=== PATIENT | female | born 1970 | race Caucasian/White ===

== ENCOUNTER 2020-07-18 04:35 | Emergency (ER) | payer MEDICAID ==
[~2020-07-18] VITALS: Ht 162.6 cm; Wt 83.9 kg
[2020-07-18 04:50] VITALS: BP 160/90
--- NOTE | 2020-07-18 04:59 | NUR ---
AMBULATED TO ER BED 1
--- NOTE | 2020-07-18 05:00 | NUR ---
to bed 4, ambulatory with c/o hematuria x 1 week. HAS BEEN TAKING OTC MEDICATIONS BUT CONTINUES WITH C/O SUPRAPUBIC PAIN AND BLOOD IN URINE
--- NOTE | 2020-07-18 05:05 | NUR ---
DR. ARTEAGA AT BEDSIDE FOR EXAM
[2020-07-18 05:28] VITALS: BP 160/90
== END 2020-07-18 05:28 | disposition home or self-care (01) ==
LOC: MED 04:35
DX: N39.0 Urinary tract infection, site not specified (principal); R31.9 Hematuria, unspecified; E11.9 Type 2 diabetes mellitus without complications
CPT/HCPCS: 81002; 81025; 87086; 99283